=== PATIENT | female | born 1965 | race Caucasian/White ===

== ENCOUNTER 2023-05-01 20:49 | Emergency (ER) | payer BC ==
[~2023-05-01] VITALS: Ht 167.6 cm; Wt 54.4 kg
[2023-05-01] MEDS ORDERED: NORT10CA PO (21:03)
[2023-05-01] MEDS ORDERED: ATOR10TA PO (21:03)
[2023-05-01] MEDS ORDERED: ZONI100C31 PO (21:03)
[2023-05-01] MEDS ORDERED: IV NORMAL SALINE 500 ML BAG IV ONE (21:15)
[2023-05-01] MEDS ORDERED: ONDANSETRON 4 MG/2 ML VIAL IV ONE (21:15)
[2023-05-01 21:26] LABS: BASOPHILS # (AUTO) 0.1 K/UL (0.0-0.2); BASOPHILS % (AUTO) 0.9 % (0.0-2.0); EOSINOPHILS # (AUTO) 0.2 K/uL (0.0-0.7); EOSINOPHILS % (AUTO) 2.1 % (0.0-7.0); HEMATOCRIT 40.3 % (31.2-41.9); HEMOGLOBIN 13.7 g/dL (10.9-14.3); LYMPHOCYTES # (AUTO) 2.1 K/uL (0.8-4.8); LYMPHOCYTES % (AUTO) 27.4 % (20.5-51.5); MEAN CORPUSCULAR HGB CONC 34 g/dL (32.3-35.6); MEAN CORPUSCULAR VOLUME 94.2 fL (75.5-95.3); MONOCYTES # (AUTO) 0.7 K/uL (0.1-1.30); MONOCYTES % (AUTO) 9.3 % (0.0-11.0); NEUTROPHILS # (AUTO) 4.7 K/uL (1.8-8.9); NEUTROPHILS % (AUTO) 60.3 % (38.5-71.5); PLATELET COUNT (AUTO) 335 K/uL (179-408); RED BLOOD CELL COUNT(AUTO) 4.28 MIL/uL (3.63-4.92); RED CELL DISTRIBUTION WIDTH 13.3 % (12.3-17.7); WHITE BLOOD COUNT (AUTO) 7.8 K/uL (3.8-11.8)
[2023-05-01] MEDS ORDERED: ONDANSETRON 4 MG/2 ML VIAL ONE (21:27)
[2023-05-01 21:31] LABS: DIFFERENTIAL COMMENT 1
[2023-05-01 21:43] LABS: CALCIUM 9.3 mg/dL (8.5-10.1); CREATININE 0.9 mg/dL (0.6-1.3); POTASSIUM 3.2 mmol/L (3.5-5.1)
[2023-05-01 21:46] LABS: *BILIRUBIN,URIN NEGATIVE (NEGATIVE); *BLOOD, URINE 2+ (NEGATIVE); *CLARITY,URINE CLOUDY (CLEAR); *COLOR,URINE LIGHT YELLOW (YELLOW); *KETONES,URINE TRACE (NEGATIVE); *PROTEIN,URINE NEGATIVE (NEGATIVE); *UROBILINOGEN,URINE 0.2 E.U./dl (NORMAL); LEUKOCYTE ESTERASE ,URINE TRACE (NEGATIVE); NITRITE, URINE NEGATIVE (NEGATIVE); PH,URINE 7.5 (5.0-8.0); UGLUCOSE NEGATIVE (NEGATIVE)
[2023-05-01 21:48] LABS: ALBUMIN 4.5 g/dL (3.4-5.0); BILIRUBIN,DIRECT 0.1 mg/dL (0.0-0.2); BILIRUBIN,TOTAL 0.5 mg/dL (0.2-1.0)
[2023-05-01] MEDS ORDERED: IV NORMAL SALINE 250 ML IV ONE (22:05)
[2023-05-01] MEDS ORDERED: IOHEXOL 300MG/ML 100 ML INFUS..BTL ONE (22:05)
[2023-05-01] MEDS ORDERED: SWABABLE VALVE TRANSFER SET EA MC ONE (22:05)
[2023-05-01 22:21] LABS: BACTERIA,URINE MODERATE /HPF (NONE SEEN); RBC,URINE 20-50 /HPF (0-3); SQUAMOUS EPITHELIAL CELL,UR MODERATE /HPF (NONE SEEN); WBC,URINE 0-3 /HPF (0-3)
[2023-05-01 22:22] LABS: URINE AMORPHOUS URATE MANY /HPF
[2023-05-01] MEDS ORDERED: POTASSIUM CHLORIDE 20 MEQ TAB.PRT.SR PO ONE (22:45)
[2023-05-01] MEDS ORDERED: LACTULOSE 20 G/30 ML LIQUID UDC PO ONE (22:45)
[2023-05-01] MEDS ORDERED: LACTULOSE 20 G/30 ML LIQUID UDC ONE (22:46)
[2023-05-01] MEDS ORDERED: POTASSIUM CHLORIDE 20 MEQ TAB.PRT.SR ONE (22:47)
[2023-05-01 23:15] VITALS: BP 144/82; TEMP 97.5; O2SAT 100
== END 2023-05-01 23:16 | disposition home or self-care (01) ==
LOC: ER 20:51
DX: R10.30 Lower abdominal pain, unspecified (principal); K59.00 Constipation, unspecified; E87.6 Hypokalemia; E87.1 Hypo-osmolality and hyponatremia; G43.909 Migraine, unspecified, not intractable, without status migrainosus; E78.5 Hyperlipidemia, unspecified; Z88.2 Allergy status to sulfonamides; Z79.899 Other long term (current) drug therapy; Z90.710 Acquired absence of both cervix and uterus
CPT/HCPCS: 99285; 74177; 96374; 80076; 80048; 81001; 83690; 85025; 85730; 36415; J2405; Q9967; J7040; A4663